=== PATIENT | female | born 1975 | race Caucasian/White ===

== ENCOUNTER 2017-02-09 12:02 | Emergency (ER) | payer OTHER ==
[2017-02-09 12:06] VITALS: TEMP 98.2
[2017-02-09] MEDS ORDERED: LORazepam 2 MG/ML SYRINGE IV STA (12:17)
[2017-02-09 12:41] LABS: Basophils # (A) 0.1 k/uL (0-0.2); Basophils % (A) 1 %; CH 32.2; CHCM 36.1; Eosinophils # (A) 0.1 k/uL (0-0.7); Eosinophils % (A) 1 %; HCT 40.4 % (34.0-46.0); HDW 2.48; HGB 14.2 gm/dL (11.4-16.0); Luc # (Auto) 0.12; Luc % (Auto) 2; Lymphocytes # (A) 1.6 k/uL (1.0-4.8); Lymphocytes % (A) 29 %; MCH 31.5 pg (25.0-35.0); MCHC 35.1 g/dL (31.0-37.0); MCV 89.6 fL (80.0-100.0); Mean Platelet Volume 7.5; Monocytes # (A) 0.3 k/uL (0-1.0); Monocytes % (A) 5 %; Neutrophils # (A) 3.6 k/uL (1.3-7.7); Neutrophils % (A) 62 %; RBC 4.51 m/uL (3.80-5.40); RDW 11.8 % (11.5-15.5); WBC 5.7 k/uL (3.8-10.6); WBC (Perox) 5.91
--- NOTE | 2017-02-09 12:42 | ED ---
Chest Pain HPI - General Chief Complaint: Chest Pain Stated Complaint: Chest pain Time Seen by Provider: 02/09/17 12:08 Source: patient Mode of arrival: wheelchair Limitations: no limitations - History of Present Illness Initial Comments: This is a 41-year-old female with a history of hypertension who presents emergency department for chest pain. She describes it as a squeezing sensation in the middle of her chest. It does not radiate. She hasn't associated shortness of breath and lightheadedness and this is the reason that she decided to come in. She states that the pain has been constant since yesterday morning. It is not worsened by exertion or any other activities. It is not pleuritic in nature. It does not radiate into her back. She does not describe it as a ripping sensation. She does state that she is under a lot of stress recently and feels that the chest pain is made her anxiety worse. She denies any history of DVT or PE. No estrogen use. No recent travel or surgery. No other complaints. This patient is low risk for PE because he/she has met the following criteria Age <50 years HR <100 bpm Room Air SpO2 >95% No prior DVT/PE No recent trauma/surgery No hemoptysis No exogenous estrogen use No clinical signs of DVT - Related Data Home Medications Medication Instructions Recorded Confirmed Bisoprolol-Hctz 10-6.25 mg [Ziac 1 tab PO HS 02/09/17 02/09/17 10-6.25] Allergies Allergy/AdvReac Type Severity Reaction Status Date / Time erythromycin base AdvReac Vomiting Verified 02/09/17 12:47 FRESH FRUIT Allergy Severe Anaphylaxis Uncoded 02/09/17 12:47 Review of Systems ROS Statement: Those systems with pertinent positive or pertinent negative responses have been documented in the HPI. ROS Other: All systems not noted in ROS Statement are negative. EKG Findings - EKG Comments: EKG Findings:: EKG showing normal sinus rhythm with a rate of 72. No ST segment changes or T-wave inversions are present. QTC is 446. Other intervals are normal. She does have occasional PVCs. Past Medical History Past Medical History: Hypertension History of Any Multi-Drug Resistant Organisms: None Reported Past Surgical History: Section Past Psychological History: No Psychological Hx Reported Smoking Status: Current every day smoker Past Alcohol Use History: Rare Past Drug Use History: None Reported General Exam - General Exam Comments Initial Comments: Constitutional: Awake alert appears anxious Head: Normocephalic atraumatic Eyes: no conjunctival injection No scleral icterus EOMI Neck: No JVD Supple Heart: Regular rate rhythm normal S1-S2 no murmurs Lungs: Clear to auscultation bilaterally No wheezing No rales Abdomen: Soft nondistended nontender Extremities: Non edematous DP pulses intact Radial pulses intact Neuro: A&Ox3 No focal neurologic deficits Psych: Anxious Appropriate mood and affect Limitations: no limitations Course Vital Signs 02/09/17 02/09/17 02/09/17 12:03 12:25 13:05 Temperature 98.2 F Pulse Rate 72 72 60 Respiratory 20 20 16 Rate Blood Pressure 155/86 135/94 134/89 O2 Sat by Pulse 100 99 98 Oximetry Chest Pain MDM - PAULA Is a 41-year-old female who presents emergency department for atypical chest pain. The patient was evaluated with an EKG which was normal except for occasional PVCs. Troponin was negative as well. The patient's symptoms have been constant for over 24 hours and had expect to see some type of evidence and the blood work and face was ischemic chest pain. Patient did report improvement after Ativan. I did have a long discussion about her stress at home and she states that she just has been coming to a head. She just been very stressed out at home. I told her to work on non-pharmaceutical stress relievers and follow-up closely with her primary doctor. She may benefit from an outpatient stress test if she has persistent symptoms. She goes return to the emergency Department if she has worsening or changing symptoms all questions were answered. Disposition Clinical Impression: Chest pain Disposition: HOME SELF-CARE Condition: Stable Instructions: Chest Pain (ED) Referrals: Anderson Sweet MD [Primary Care Provider] - 1-2 days
[2017-02-09 12:54] LABS: ALT 19 U/L (9-52); AST 15 U/L (14-36); Alkaline Phosphatase 57 U/L (38-126); Anion Gap 10 mmol/L; Blood Urea Nitrogen 11 mg/dL (7-17); Calcium 9.3 mg/dL (8.4-10.2); Carbon Dioxide 26 mmol/L (22-30); Chloride 103 mmol/L (98-107); Glucose 98 mg/dL (74-99); Non-African American GFR(MDRD) >60 (>60 ml/min/1.73 sqM); Potassium 3.8 mmol/L (3.5-5.1); Sodium 139 mmol/L (137-145); Total Bilirubin 1.5 mg/dL (0.2-1.3); Total Protein 6.8 g/dL (6.3-8.2)
[2017-02-09 13:00] LABS: Partial Thromboplastin Time 25.1 sec (22.0-30.0); Prothrombin Time 9.9 sec (9.0-12.0)
[2017-02-09 13:00] LABS: Appearance,Urine Cloudy (Clear); Bacteria,Urine Rare /hpf; Bilirubin,Urine Negative (Negative); Glucose,Urine (UA) Negative (Negative); Ketones,Urine Negative (Negative); Leukocyte Esterase,Urine Negative (Negative); Mucus,Urine Few /hpf; Nitrite,Urine Negative (Negative); PH, Urine 6.5 (5.0-8.0); Particle Count 7384; Protein,Urine Trace (Negative); RBC,Urine 3 /hpf (0-5); Specific Gravity,Urine 1.017 (1.001-1.035); Squamous Epithelial Cell,Urine 5 /hpf (0-4); UA Billing (MACRO vs. MICRO) MICRO; Urobilinogen,Urine <2.0 mg/dL (<2.0); WBC,Urine 2 /hpf (0-5)
[2017-02-09 13:17] LABS: Creatine Kinase MB <0.2 ng/mL (0.0-2.4); Troponin I <0.012 ng/mL (0.000-0.034)
[2017-02-09 13:29] VITALS: RESP 16
--- NOTE | 2017-02-09 13:29 | XR ---
EXAMINATION TYPE: XR chest 2V DATE OF EXAM: 02/09/2017 1:26 PM COMPARISON: NONE TECHNIQUE: PA and lateral views submitted. HISTORY: chest pain FINDINGS: The lungs are clear and there is no pneumothorax, pleural effusion, or focal pneumonia. Curvature o f the spine noted. IMPRESSION: 1. No acute process.
[2017-02-09 13:45] VITALS: BP 132/85; PULSE 63
== END 2017-02-09 13:40 | disposition home or self-care (01) ==
LOC: EC 12:02
DX: R07.89 Other chest pain (principal); I10 Essential (primary) hypertension; F17.200 Nicotine dependence, unspecified, uncomplicated; Z79.899 Other long term (current) drug therapy; Z88.1 Allergy status to other antibiotic agents; Z91.018 Allergy to other foods
CPT/HCPCS: 93005; 80053; 82553; 83735; 84484; 85025; 85610; 85730; 81001; 81025; 71020; 99285; 96374; J2060

== ENCOUNTER → 2023-10-04 | Outpatient (CLI) | payer BC ==
--- NOTE | 2023-10-04 08:45 | CT ---
EXAMINATION TYPE: CT brain wo con CT DLP: 1192 mGycm, Automated exposure control for dose reduction was used. DATE OF EXAM: 10/04/2023 8:38 AM COMPARISON: None. CLINICAL INDICATION:Female, 47 years old with history of S09.90XA unspecified head injury, Pt had hea d injury to RT side of head back in the summer. Did have LOC. Reports tunnel vision, dizziness since incident TECHNIQUE: Brain: Axial CT images of the brain were obtained with coronal and sagittal reformats created and rev iewed. Contrast used: None. Oral contrast used: None. FINDINGS: Brain: Extra-axial spaces: No abnormal extra-axial fluid collections. Ventricular system: Within normal limits Cerebral parenchyma: No acute intraparenchymal hemorrhage or mass effect. The -white junction is well differentiated. Cerebellum: Unremarkable. Mass effect: No evidence of midline shift. Intracranial vasculature: unremarkable Soft tissues: Normal. Calvarium/osseous structures: No depressed skull fracture. Paranasal sinuses and mastoid air cells: Mild scattered paranasal sinus disease. Visualized orbits: Orbital contents are intact. IMPRESSION: No acute intracranial process.
== END | disposition home or self-care (01) ==
LOC: RADCTMAIN 07:48
PROVIDERS: ATTEND Family Medicine
DX: S09.90XA Unspecified injury of head, initial encounter (principal); X58.XXXA Exposure to other specified factors, initial encounter
CPT/HCPCS: 70450